=== PATIENT | male | born 1950 | race Caucasian/White ===

== ENCOUNTER 2020-08-12 18:00 | Emergency (ER) | payer MEDICARE, OTHER ==
[~2020-08-12] VITALS: Ht 167 cm; Wt 117.0 kg
--- NOTE | 2020-08-12 18:24 | ED Cardiac General ---
History of Present Illness General Stated Complaint: HIGH BP Source: patient, spouse Exam Limitations: no limitations History of Present Illness Date Seen by Provider: Aug 12, 2020 Time Seen by Provider: 18:08 Initial Comments Patient presents the ER by private conveyance with chief complaint that he was sitting at home not doing anything strenuous and had no symptoms but decided he would just check his blood pressure. He noted it was 205/105 which was significantly elevated for him. He is not having any symptoms chest pain shortness of air weakness or exertional dyspnea but decided he better get it checked out. He has an appointment the following week with a sas architect to help manage his uncontrollable blood pressure. He is on losartan, metoprolol and amlodipine. He says he is been taking his medications routinely although he has not had his evening meds yet which he usually takes at 8:00. No history of coronary disease. He is not a smoker. No significant familial early onset coronary disease. He has diabetes on Levemir and his last A1c was 5 so his primary care provider Walker Goodman at [facility] discontinued his NovoLog. He did recently stop Trulicity and start Januvia. He has had no cough fever chills sick contacts or travel. No nausea vomiting headache diarrhea or constipation. He is accompanied by a book which she logs his blood pressures and for the past month or 2 and typically runs 150-170 systolic over 90 diastolic. Allergies and Home Medications Allergies Coded Allergies: No Known Drug Allergies (Unverified , 08/12/20) Home Medications Azithromycin 250 Mg Tablet, 250 MG PO UD TAKE 2 TABLETS ON DAY ONE THEN TAKE 1 TABLET DAILY FOR FOUR MORE DAYS Prescribed by: PRIETO PISANO on 08/12/201920 Cefdinir 300 Mg Capsule, 300 MG PO BID Prescribed by: PRIETO PISANO on 08/12/201920 Patient Home Medication List Home Medication List Reviewed: Yes Review of Systems Review of Systems Constitutional: No chills, No diaphoresis EENTM: No Blurred Vision, No Double Vision Respiratory: Denies Cough, Denies Shortness of Air Cardiovascular: Denies Chest Pain, Denies Lightheadedness Gastrointestinal: Denies Constipated, Denies Diarrhea, Denies Nausea, Denies Vomiting Genitourinary: Denies Burning, Denies Discharge Musculoskeletal: No back pain, No joint pain Psychiatric/Neurological: Denies Anxiety, Denies Depressed All Other Systems Reviewed Negative Unless Noted: Yes Past Eadwjwi-Tboxvp-Qcicwc Hx Patient Social History Alcohol Use: Denies Use Drug of Choice: Denies Smoking Status: Former Smoker Type Used: Cigarettes Former Smoker, Quit: Jul 23, 1998 Physical Exam Vital Signs Vital Signs - First Documented 08/12/20 18:22 Temp 37.1 Pulse 104 Resp 18 B/P (MAP) 200/100 (133) Pulse Ox 97 Capillary Refill : Height, Weight, BMI Height: '" Weight: lbs. oz. kg; BMI Method: General Appearance: No Apparent Distress, Obese HEENT: PERRL/EOMI, Pharynx Normal, Moist Mucous Membranes Neck: Normal Inspection, Non Tender Respiratory: No Accessory Muscle Use, No Respiratory Distress, Rales (Few crackles in the mid right lung and lower lung base. No wheezing) Cardiovascular: Regular Rate, Rhythm, No Edema, Normal Peripheral Pulses Gastrointestinal: Non Tender, Soft Extremity: Normal Capillary Refill, Normal Inspection Neurologic/Psychiatric: Alert, Oriented x3 Skin: Normal Color, Warm/Dry Progress/Results/Core Measures Results/Orders Lab Results Laboratory Tests Test 08/12/20 18:14 Range/Units White Blood Count 9.7 4.3-11.0 10^3/uL Red Blood Count 4.52 4.30-5.52 10^6/uL Hemoglobin 13.1 L 13.3-17.7 g/dL Hematocrit 38 L 40-54 % Mean Corpuscular Volume 83 80-99 fL Mean Corpuscular Hemoglobin 29 25-34 pg Mean Corpuscular Hemoglobin Concent 35 32-36 g/dL Red Cell Distribution Width 12.9 10.0-14.5 % Platelet Count 265 130-400 10^3/uL Mean Platelet Volume 8.8 L 9.0-12.2 fL Immature Granulocyte % (Auto) 1 % Neutrophils (%) (Auto) 64 42-75 % Lymphocytes (%) (Auto) 19 12-44 % Monocytes (%) (Auto) 8 0-12 % Eosinophils (%) (Auto) 9 0-10 % Basophils (%) (Auto) 1 0-10 % Neutrophils # (Auto) 6.2 1.8-7.8 10^3/uL Lymphocytes # (Auto) 1.8 1.0-4.0 10^3/uL Monocytes # (Auto) 0.8 0.0-1.0 10^3/uL Eosinophils # (Auto) 0.9 H 0.0-0.3 10^3/uL Basophils # (Auto) 0.1 0.0-0.1 10^3/uL Immature Granulocyte # (Auto) 0.1 0.0-0.1 10^3/uL Sodium Level 137 135-145 MMOL/L Potassium Level 3.8 3.6-5.0 MMOL/L Chloride Level 99 98-107 MMOL/L Carbon Dioxide Level 22 21-32 MMOL/L Anion Gap 16 H 5-14 MMOL/L Blood Urea Nitrogen 37 H 7-18 MG/DL Creatinine 1.12 0.60-1.30 MG/DL Estimat Glomerular Filtration Rate > 60 BUN/Creatinine Ratio 33 Glucose Level 72 70-105 MG/DL Calcium Level 9.1 8.5-10.1 MG/DL Corrected Calcium 9.1 8.5-10.1 MG/DL Total Bilirubin 0.8 0.1-1.0 MG/DL Aspartate Amino Transf (AST/SGOT) 31 5-34 U/L Alanine Aminotransferase (ALT/SGPT) 37 0-55 U/L Alkaline Phosphatase 83 40-136 U/L Troponin I < 0.028 <0.028 NG/ML B-Type Natriuretic Peptide 14.8 <100.0 PG/ML Total Protein 8.5 H 6.4-8.2 GM/DL Albumin 4.0 3.2-4.5 GM/DL My Orders Orders - ALIYA,PRIETO J Chest 1 View, Ap/Pa Only (08/12/20 18:15) Ekg Tracing (08/12/20 18:17) Continuous Ekg Monitoring (08/12/20 18:17) Cbc With Automated Diff (08/12/20 18:17) Comprehensive Metabolic Panel (08/12/20 18:17) Troponin I (08/12/20 18:17) BNP (08/12/20 18:17) Aspirin Chewable Tablet (Baby Aspirin Ch (08/12/20 18:30) Medications Given in ED Current Medications Medications Dose Ordered Sig/Lawanda Route Start Time Stop Time Status Last Admin Dose Admin Aspirin 324 mg ONCE ONCE PO 08/12/20 18:30 08/12/20 18:31 DC 08/12/20 18:33 324 MG Vital Signs/I&O 08/12/20 18:22 Temp 37.1 Pulse 104 Resp 18 B/P (MAP) 200/100 (133) Pulse Ox 97 Progress Progress Note #1: Time: 18:21 Progress Note Asymptomatic accelerated hypertension. Our goal would be a 20% decrease today. He had a blood pressure of 200/95 on arrival and at the end of our interview he was already down to 190/94. We will continue to monitor him and we may start a third medication at this junction. Minimal amount of congestion in the vasculature of his lungs so we will get a BNP. EKG and chest x-ray points towards possible pulmonary hypertension. This will need to be explored more by his sas architect. Progress Note #2: Time: 19:18 Progress Note With rest the patient's blood pressure is 164/82 which is a significant drop. His blood pressure is probably worsened by his anxiety. He may have a mild pneumonia Rosalina put him on cefdinir and azithromycin and have him follow-up outpatient. Patient is okay with this plan. He has had no material deterioration during his stay in the ER. Initial ECG Impression Date: Aug 12, 2020 Initial ECG Impression Time: 18:24 Initial ECG Rate: 101 Initial ECG Rhythm: S.Tach Initial ECG Intervals: IL (216 ms) Initial ECG Impression: Normal, Nonspecific Changes Initial ECG Comparisson: No Previous ECG Available Comment No previous EKG but he has sinus tachycardia with no clinically relevant ST changes and some prolonged IL interval. EKG indicates some artifact may be pacemaker spike however he does not have a pacemaker. Right deviation of the mean electrical activity. Diagnostic Imaging Diagonstic Imaging: Xray Plain Films/CT/US/NM/MRI: chest Comments NAME: WALKER CHIRINOS [facility] REC#: [id number] PT STATUS: REG ER : 1950 PHYSICIAN: PRIETO PISANO MD ADMIT DATE: 08/12/20/ER Draft Date of Exam:08/12/20 CHEST 1 VIEW, AP/PA ONLY INDICATION: Hypertension. TECHNIQUE: Single view chest 6:23 PM. CORRELATION STUDY: None. FINDINGS: Heart size is borderline enlarged. Mediastinal configuration and vasculature are within normal limits. Atelectasis or infiltrate suggested about the right infrahilar region. Elevated right diaphragm. IMPRESSION: Questioned infiltrate and/or atelectasis developing in the right lung base medially. Dictated on workstation # [id number] Dict: 08/12/20 1822 Trans: 08/12/20 1831 [facility] [id number] Interpreted by: BROOKLYN DUVALL DO Electronically signed by: Reviewed: Reviewed by Me Departure Impression Primary Impression: Asymptomatic hypertensive urgency Additional Impression: Pneumonia Qualified Codes: J18.9 - Pneumonia, unspecified organism Disposition: HOME, SELF-CARE Condition: Stable Departure-Patient Inst. Decision time for Depature: 19:19 Referrals: NO,LOCAL PHYSICIAN (PCP) Primary Care Physician WALKER GOODMAN (Family) Primary Care Physician Patient Instructions: Pneumonia in Adults, Malignant Hypertension (DC) Add. Discharge Instructions: Your blood pressure came down as you rested. It certainly can be driven by anxiety and may need further management outpatient. Since your blood pressure is at a reasonable goal at this time we will not make any changes to your medicines rather I would have you follow-up with a sas architect and take instructions from them. Cefdinir 1 capsule twice a day for the next week. Azithromycin 2 tablets followed by 1 tablet daily until they are gone. Follow-up in 1 to 2 weeks with your primary care team for reevaluation to see if your symptoms improve after the antibiotics. Return to the ER for chest pain, shortness of air or other worrisome symptoms Scripts Azithromycin (Azithromycin) 250 Mg Tablet 250 MG PO UD, #6 TAB TAKE 2 TABLETS ON DAY ONE THEN TAKE 1 TABLET DAILY FOR FOUR MORE DAYS Prov: PRIETO PISANO 08/12/20 Cefdinir (Cefdinir) 300 Mg Capsule 300 MG PO BID for 7 Days, #14 CAP 0 Refills Prov: PRIETO PISANO 08/12/20 PRIETO PISANO Aug 12, 2020 18:24
[2020-08-12] MEDS ORDERED: ASPIRIN 81 MG CHEW (CHILDREN'S ASA) PO ONE (18:30)
--- NOTE | 2020-08-12 18:33 | Diagnostic Imaging Report ---
INDICATION: Hypertension. TECHNIQUE: Single view chest 6:23 PM. CORRELATION STUDY: None. FINDINGS: Heart size is borderline enlarged. Mediastinal configuration and vasculature are within normal limits. Atelectasis or infiltrate suggested about the right infrahilar region. Elevated right diaphragm. IMPRESSION: Questioned infiltrate and/or atelectasis developing in the right lung base medially. Dictated by: Dictated on workstation # [id number]
[2020-08-12 18:50] LABS: BASOPHILS # (AUTO) 0.1 10^3/uL (0.0-0.1); BASOPHILS % (AUTO) 1 % (0-10); EOSINOPHILS # (AUTO) 0.9 10^3/uL (0.0-0.3); EOSINOPHILS % (AUTO) 9 % (0-10); HEMATOCRIT 38 % (40-54); HEMOGLOBIN 13.1 g/dL (13.3-17.7); LYMPHOCYTES # (AUTO) 1.8 10^3/uL (1.0-4.0); LYMPHOCYTES % (AUTO) 19 % (12-44); MEAN CORPUSCULAR HEMOGLOBIN 29 pg (25-34); MEAN CORPUSCULAR HGB CONC 35 g/dL (32-36); MEAN CORPUSCULAR VOLUME 83 fL (80-99); MEAN PLATELET VOLUME 8.8 fL (9.0-12.2); MONOCYTES # (AUTO) 0.8 10^3/uL (0.0-1.0); MONOCYTES % (AUTO) 8 % (0-12); NEUTROPHILS # (AUTO) 6.2 10^3/uL (1.8-7.8); NEUTROPHILS % (AUTO) 64 % (42-75); PLATELET COUNT 265 10^3/uL (130-400); WHITE BLOOD COUNT 9.7 10^3/uL (4.3-11.0)
[2020-08-12 19:10] LABS: ALANINE AMINOTRANSFERASE 37 U/L (0-55); ALKALINE PHOSPHATASE 83 U/L (40-136); BILIRUBIN,TOTAL 0.8 MG/DL (0.1-1.0); BUN/CREATININE RATIO 33; CALCIUM 9.1 MG/DL (8.5-10.1); CARBON DIOXIDE 22 MMOL/L (21-32); CHLORIDE 99 MMOL/L (98-107); CREATININE SERUM 1.12 MG/DL (0.60-1.30); GFR ESTIMATED > 60; GLUCOSE 72 MG/DL (70-105); POTASSIUM 3.8 MMOL/L (3.6-5.0); SODIUM 137 MMOL/L (135-145); TOTAL PROTEIN 8.5 GM/DL (6.4-8.2)
[2020-08-12] MEDS ORDERED: AZIT250T12 PO (19:21)
[2020-08-12] MEDS ORDERED: CEFD300C3 PO (19:21)
[2020-08-13 01:10] VITALS: BP 163/86
== END 2020-08-12 20:15 | disposition home or self-care (01) ==
LOC: EDUNIT# 18:00 → EDSEX 18:02 → ER 18:02
DX: I16.0 Hypertensive urgency (principal); J18.9 Pneumonia, unspecified organism; I10 Essential (primary) hypertension; Z87.891 Personal history of nicotine dependence; Z79.899 Other long term (current) drug therapy
CPT/HCPCS: 36415; 71045; 80053; 83880; 84484; 85025; 93005

== ENCOUNTER 2020-08-17 18:26 | Emergency (ER) | payer MEDICARE ==
[~2020-08-17] VITALS: Ht 162 cm; Wt 113.0 kg
[~2020-08-17 18:26] MED LIST: AZIT250T12 PO; CEFD300C3 PO
[2020-08-17] MEDS ORDERED: METO100T12 (18:42)
[2020-08-17] MEDS ORDERED: HYDR25TA4 (18:42)
[2020-08-17] MEDS ORDERED: PRAV80TA2 (18:42)
[2020-08-17] MEDS ORDERED: AMLO-251 (18:42)
[2020-08-17] MEDS ORDERED: LOSA100T57 (18:42)
[2020-08-17] MEDS ORDERED: METF-399 (18:42)
[2020-08-17] MEDS ORDERED: cloNIDine 0.2 MG (CATAPRES) TAB PO ONE (19:30)
--- NOTE | 2020-08-17 19:31 | ED General ---
General Chief Complaint: Cardiac/General Problems Stated Complaint: ELEV BP 207/113 Nursing Triage Note: ARRIVED VIA AMB FROM HOME WITH COMPLAINT OF CONTINUING HIGH BP. STATES HE WAS SEEN HERE ON FOR THE SAME THING. PT HAS A NOSE BLEED. Nursing Sepsis Screen: No Definite Risk Source of Information: Patient Exam Limitations: No Limitations History of Present Illness Date Seen by Provider: Aug 17, 2020 Time Seen by Provider: 18:50 Initial Comments Patient is a 69-year-old male who presents to the emergency department today with a chief complaint of elevated blood pressure with right-sided bloody nose. Patient states that he had been talking to his and noticed that his nose was starting to run and when he went to check it he noticed that he had a bloody nose. He subsequently took his blood pressure and noted that it was greater than 200 systolic. Patient states that he was seen here about a week ago as dusty castañeda for elevated blood pressure in the setting of runny nose and a "small pneumonia". Patient had no changes to his blood pressure medicine regimen. He was placed on antibiotics for this pneumonia. He was advised to follow-up with his code number stamper and primary care physician regarding further management of his blood pressure. Patient states that he took his metoprolol early this evening when he realized that his blood pressure was high and came to the emergency department about an hour later. Patient is quite concerned about having a heart attack or a stroke. He currently has no symptoms of headache, vision changes, chest pain, shortness of breath. No nausea or vomiting. He states that his bloody nose stopped on its own. He states it always bleeds out of the right side of his nose. Patient states that he has an appointment with his code number stamper on the or 17 September. He also will follow up with his primary care physician on Thursday. His is at the bedside and also provides further history. No other recent illnesses are reported. All other review of systems reviewed and negative except as stated above. Timing/Duration: 1-3 Hours Severity: Mild Associated Systoms: Denies Symptoms Allergies and Home Medications Allergies Coded Allergies: No Known Drug Allergies (Unverified , 08/12/20) Home Medications Azithromycin 250 Mg Tablet, 250 MG PO UD TAKE 2 TABLETS ON DAY ONE THEN TAKE 1 TABLET DAILY FOR FOUR MORE DAYS Prescribed by: PRIETO PISANO on 08/12/201920 Cefdinir 300 Mg Capsule, 300 MG PO BID Prescribed by: PRIETO PISANO on 08/12/201920 Patient Home Medication List Home Medication List Reviewed: Yes Review of Systems Review of Systems Constitutional: no symptoms reported EENTM: epistaxis (right sided) Respiratory: no symptoms reported Cardiovascular: no symptoms reported Gastrointestinal: no symptoms reported Genitourinary: no symptoms reported Musculoskeletal: no symptoms reported Skin: no symptoms reported All Other Systems Reviewed Negative Unless Noted: Yes Past Hbztvoh-Hcivfl-Xtryjm Hx Patient Social History Alcohol Use: Denies Use Drug of Choice: Denies Smoking Status: Former Smoker Type Used: Cigarettes Former Smoker, Quit: Jul 23, 1998 Recent Infectious Disease Expo: No Past Medical History Appendectomy Respiratory: Yes COPD Cardiac: Yes Coronary Artery Disease, High Cholesterol, Hypertension Neurological: No Genitourinary: No Gastrointestinal: No Musculoskeletal: No Endocrine: Yes Diabetes, Insulin dep HEENT: No Cancer: No Psychosocial: No Physical Exam Vital Signs Vital Signs - First Documented 08/17/20 18:35 Temp 36.1 Pulse 96 Resp 18 B/P (MAP) 206/108 (140) Pulse Ox 96 O2 Delivery Room Air Capillary Refill : Less Than 3 Seconds Height, Weight, BMI Height: '" Weight: lbs. oz. kg; 43.00 BMI Method: General Appearance: No Apparent Distress Eyes: Bilateral Eye Normal Inspection, Bilateral Eye PERRL, Bilateral Eye EOMI HEENT: PERRL/EOMI, Other (Patient has clotted nasal blood in the right nare with no evidence of active bleeding) Neck: Full Range of Motion, Supple Respiratory: Lungs Clear, Normal Breath Sounds, No Accessory Muscle Use, No Respiratory Distress Cardiovascular: Regular Rate, Rhythm, Normal Peripheral Pulses (2_ radial pulses bilaterally) Gastrointestinal: Normal Bowel Sounds, Non Tender, Soft Extremity: Normal Capillary Refill, Normal Range of Motion Neurologic/Psychiatric: Alert, Oriented x3, No Motor/Sensory Deficits, Normal Mood/Affect, windows architect II-XII Norm as Tested Skin: Normal Color, Warm/Dry Progress/Results/Core Measures Suspected Sepsis Recent Fever Within 48 Hours: No Infection Criteria Present: None New/Unexplained Altered Menta: No Sepsis Screen: No Definite Risk SIRS Temperature: Pulse: 96 Respiratory Rate: 18 Blood Pressure 206 /108 Mean: 140 Results/Orders My Orders Orders - MAYE MEYER MD Clonidine Tablet (Catapres Tablet) (08/17/20 19:30) Medications Given in ED Current Medications Medications Dose Ordered Sig/Lawanda Route Start Time Stop Time Status Last Admin Dose Admin Clonidine HCl 0.2 mg ONCE ONCE PO 08/17/20 19:30 08/17/20 19:31 DC 08/17/20 19:34 0.2 MG Vital Signs/I&O 08/17/20 18:35 Temp 36.1 Pulse 96 Resp 18 B/P (MAP) 206/108 (140) Pulse Ox 96 O2 Delivery Room Air Capillary Refill : Less Than 3 Seconds Blood Pressure Mean: 140 Progress Note : Time: : Progress Note Patient seen and evaluated evaluation today includes a physical exam. Patient has clotted nasal blood in his right nare. His blood pressure remains high in the 190/99 range. He is not having any signs or symptoms of endorgan damage at this point. Of note he had laboratory evaluation a week ago. Renal function was reviewed and was within normal limits. Patient is on 150 mg of metoprolol twice daily. He is also on losartan and a third blood pressure pill, amlodipine. He also has hydrochlorothiazide of which he is taking 1-1/2 tablets a day. Patient states that he has follow-up scheduled with his primary and his is going to call them on Thursday. He also has cardiology follow-up in a month. At this point I am not concerned about hypertensive emergency. He is awake alert oriented with no focal neurologic deficits, no complaints of chest pain or shortness of breath. No renal complaints. Patient is treated here in the emergency department with 0.2 mg of clonidine. We will evaluate his metoprolol and see if it is the extended release tablets and may adjust these. Patient is comfortable with this plan of care. All questions are sought and answered. Patient is stable for discharge. Departure Impression Primary Impression: High blood pressure Qualified Codes: I10 - Essential (primary) hypertension Additional Impression: Epistaxis Disposition: HOME, SELF-CARE Condition: Stable Departure-Patient Inst. Referrals: NO,LOCAL PHYSICIAN (PCP) Primary Care Physician RIAN GOODMAN (Family) Primary Care Physician Patient Instructions: High Blood Pressure (DC), Nosebleeds (DC) Add. Discharge Instructions: I recommend either starting on an EXTENDED RELEASE Metoprolol once daily or INCREASING your current Metoprolol dose to 200mg twice a day. Continue your other medications as previsouly prescribed. Please follow up tomorrow with your primary care clinic for further management of your blood pressure medicines. Please come back to the emergency department if you have elevated blood pressure in the setting of chest pain, shortness of breath, severe headache, persistent bloody nose or any other emergent concerning symptoms Please keep your follow-up appointment with your code number stamper. Call to see if you can get a sooner appointment. Copy Copies To 1: [facility] [place] Copies To 2: STEPHANIE AREVALO KATHRYN M MD Aug 17, 2020 19:30
[2020-08-17] MEDS ORDERED: MTP100TCR PO (19:41)
[2020-08-17 20:25] VITALS: BP 171/92
== END 2020-08-17 20:18 | disposition home or self-care (01) ==
LOC: EDUNIT# 18:26 → ER 18:28
DX: I10 Essential (primary) hypertension (principal); R04.0 Epistaxis; Z87.891 Personal history of nicotine dependence

== ENCOUNTER → 2020-09-20 | Outpatient (CLI) | payer MEDICARE ==
[~2020-09-20] MED LIST changes: +AMLO-251; +HYDR25TA4; +LOSA100T57; +METF-399; +METO100T12; +MTP100TCR PO; +PRAV80TA2
== END ==
LOC: CARD 10:50
PROVIDERS: ATTEND Internal Medicine Cardiovascular Disease
DX: I37.1 Nonrheumatic pulmonary valve insufficiency (principal)
CPT/HCPCS: 93306

== ENCOUNTER → 2020-09-21 | Outpatient (CLI) | payer MEDICARE ==
[~2020-09-21] VITALS: Ht 167 cm; Wt 104.0 kg
[~2020-09-21] MED LIST changes: +REGADENOSON 0.4 MG/5 ML SYR (LEXISCAN) IV ONE
[2020-09-21] MEDS: CATHETER FLUSH 10 ML SYR IV PRN ×2 (07:46→08:54)
[2020-09-21 08:40] VITALS: BP 178/88
[2020-09-21 09:39] LABS: BASOPHILS % (AUTO) 0 % (0-10); EOSINOPHILS # (AUTO) 0.9 10^3/uL (0.0-0.3); EOSINOPHILS % (AUTO) 11 % (0-10); HEMATOCRIT 34 % (40-54); HEMOGLOBIN 11.6 g/dL (13.3-17.7); LYMPHOCYTES # (AUTO) 0.8 10^3/uL (1.0-4.0); LYMPHOCYTES % (AUTO) 11 % (12-44); MEAN CORPUSCULAR HEMOGLOBIN 30 pg (25-34); MEAN CORPUSCULAR HGB CONC 34 g/dL (32-36); MEAN CORPUSCULAR VOLUME 87 fL (80-99); MEAN PLATELET VOLUME 8.8 fL (9.0-12.2); MONOCYTES # (AUTO) 0.6 10^3/uL (0.0-1.0); MONOCYTES % (AUTO) 7 % (0-12); NEUTROPHILS # (AUTO) 5.5 10^3/uL (1.8-7.8); NEUTROPHILS % (AUTO) 70 % (42-75); PLATELET COUNT 186 10^3/uL (130-400); WHITE BLOOD COUNT 7.8 10^3/uL (4.3-11.0)
[2020-09-21 09:59] LABS: ALBUMIN 3.7 GM/DL (3.2-4.5); BILIRUBIN,TOTAL 0.7 MG/DL (0.1-1.0); CREATININE SERUM 1.27 MG/DL (0.60-1.30); POTASSIUM 4.2 MMOL/L (3.6-5.0); TOTAL PROTEIN 7.8 GM/DL (6.4-8.2)
[2020-09-21 10:14] LABS: ERYTHROCYTE SEDIMENTATION RATE 70 MM/HR (0-30)
--- NOTE | 2020-09-24 14:35 | STRESS TEST ---
DATE OF SERVICE: 09/21/2020 RESTING AND POST REGADENOSON TECHNETIUM-99M TETROFOSMIN SPECT CT IMAGING ORDERING PHYSICIAN: Dr. Trinidad. PRIMARY PHYSICIAN: LAWRENCE Gary. CLINICAL DIAGNOSIS: Shortness of breath. Baseline images were carried out after injection of 10.24 mCi technetium-99m Tetrofosmin. This was then followed by 0.4 mg regadenoson and 31 mCi of technetium-99m Tetrofosmin for stress imaging. The electrocardiogram shows sinus rhythm at baseline. It did not change significantly with the regadenoson infusion. The patient tolerated the procedure well. Review of images at rest and following stress does not indicate any distinct perfusion defects consistent with significant myocardial ischemia or infarction. Gated images show normal global left ventricular systolic function with normal regional wall motion. Left ventricular ejection fraction is calculated to be 66%. CONCLUSIONS No significant myocardial ischemia or infarction seen on this study Normal regional wall motion LVEF 66% Job ID: [id number] DocumentID: [id number] Dictated Date: 09/24/2020 10:12:31 Senior Account Manager Date: 09/24/2020 14:34:45 Dictated By: CARLOS TRINIDAD MD, MA, FACP, FACC, MTDD
== END ==
LOC: CARD 07:14
PROVIDERS: ATTEND Internal Medicine Cardiovascular Disease
DX: R06.09 Other forms of dyspnea (principal)
CPT/HCPCS: 78452; 80053; 80061; 84443; 85025; 85652; 93017; A9502; 36415

== ENCOUNTER 2020-12-17 15:10 | Emergency (ER) | payer MEDICARE ==
[~2020-12-17] VITALS: Ht 165 cm; Wt 113.6 kg
[~2020-12-17 15:10] MED LIST changes: -REGADENOSON 0.4 MG/5 ML SYR (LEXISCAN) IV ONE
[2020-12-17 15:35] LABS: BASOPHILS % (AUTO) 0 % (0-10); EOSINOPHILS # (AUTO) 1.1 10^3/uL (0.0-0.3); EOSINOPHILS % (AUTO) 12 % (0-10); HEMATOCRIT 32 % (40-54); HEMOGLOBIN 10.8 g/dL (13.3-17.7); LYMPHOCYTES # (AUTO) 0.7 X 10^3 (1.0-4.0); LYMPHOCYTES % (AUTO) 8 % (12-44); MEAN CORPUSCULAR HEMOGLOBIN 30 pg (25-34); MEAN CORPUSCULAR HGB CONC 34 g/dL (32-36); MEAN CORPUSCULAR VOLUME 87 fL (80-99); MEAN PLATELET VOLUME 9.1 fL (9.0-12.2); MONOCYTES # (AUTO) 0.5 X 10^3 (0.0-1.0); MONOCYTES % (AUTO) 6 % (0-12); NEUTROPHILS # (AUTO) 6.3 X 10^3 (1.8-7.8); NEUTROPHILS % (AUTO) 73 % (42-75); PLATELET COUNT 163 10^3/uL (130-400); WHITE BLOOD COUNT 8.6 10^3/uL (4.3-11.0)
--- NOTE | 2020-12-17 15:38 | ED General ---
General Chief Complaint: Glucose Problems Stated Complaint: HYPOGLYCEMIA Source of Information: Patient Exam Limitations: No Limitations History of Present Illness Date Seen by Provider: Dec 17, 2020 Time Seen by Provider: 15:35 Initial Comments To ER with reports of hypoglycemia. Patient reports that he felt sweaty. EMS arrived and found his blood sugar to be in the 30s. They gave an amp of D50. Patient states that his hemoglobin A1c has been in the 5 range. He is on insulin. Timing/Duration: 1-2 Days Severity: Moderate Associated Systoms: Denies Symptoms Allergies and Home Medications Allergies Coded Allergies: No Known Drug Allergies (Unverified , 08/12/20) Home Medications Azithromycin 250 Mg Tablet, 250 MG PO UD TAKE 2 TABLETS ON DAY ONE THEN TAKE 1 TABLET DAILY FOR FOUR MORE DAYS Prescribed by: PRIETO PISANO on 08/12/201920 Cefdinir 300 Mg Capsule, 300 MG PO BID Prescribed by: PRIETO PISANO on 08/12/201920 Patient Home Medication List Home Medication List Reviewed: Yes Review of Systems Review of Systems Constitutional: see HPI EENTM: see HPI Respiratory: no symptoms reported Cardiovascular: no symptoms reported Genitourinary: no symptoms reported Musculoskeletal: no symptoms reported Skin: no symptoms reported Psychiatric/Neurological: No Symptoms Reported Past [id number] Hx Past Medical History Appendectomy Respiratory: Yes COPD Cardiac: Yes Coronary Artery Disease, High Cholesterol, Hypertension Neurological: No Genitourinary: No Gastrointestinal: No Musculoskeletal: No Endocrine: Yes Diabetes, Insulin dep HEENT: No Cancer: No Psychosocial: No Physical Exam Vital Signs Vital Signs - First Documented 12/17/20 15:10 Temp 36.0 Pulse 72 Resp 18 Pulse Ox 92 O2 Delivery Room Air Capillary Refill : Height, Weight, BMI Height: '" Weight: lbs. oz. kg; 37.29 BMI Method: General Appearance: No Apparent Distress, WD/WN, Chronically ill, Obese Eyes: Bilateral Eye Normal Inspection, Bilateral Eye PERRL, Bilateral Eye EOMI HEENT: PERRL/EOMI, TMs Normal Neck: Full Range of Motion, Normal Inspection Respiratory: No Accessory Muscle Use, No Respiratory Distress Cardiovascular: Regular Rate, Rhythm, Normal Peripheral Pulses Gastrointestinal: Normal Bowel Sounds, Non Tender, Soft Extremity: Normal Capillary Refill, Normal Inspection Neurologic/Psychiatric: Alert, Oriented x3 Skin: Normal Color, Warm/Dry Progress/Results/Core Measures Suspected Sepsis SIRS Temperature: Pulse: Respiratory Rate: Laboratory Tests 12/17/20 15:23: White Blood Count 8.6 Blood Pressure / Mean: Laboratory Tests 12/17/20 15:23: Creatinine 0.79, Platelet Count 163, Total Bilirubin 0.6 Results/Orders Lab Results Laboratory Tests Test 12/17/20 15:16 12/17/20 15:23 12/17/20 16:26 Range/Units Glucometer 100 64 L 70-110 MG/DL White Blood Count 8.6 4.3-11.0 10^3/uL Red Blood Count 3.64 L 4.30-5.52 10^6/uL Hemoglobin 10.8 L 13.3-17.7 g/dL Hematocrit 32 L 40-54 % Mean Corpuscular Volume 87 80-99 fL Mean Corpuscular Hemoglobin 30 25-34 pg Mean Corpuscular Hemoglobin Concent 34 32-36 g/dL Red Cell Distribution Width 13.1 10.0-14.5 % Platelet Count 163 130-400 10^3/uL Mean Platelet Volume 9.1 9.0-12.2 fL Immature Granulocyte % (Auto) 0 % Neutrophils (%) (Auto) 73 42-75 % Lymphocytes (%) (Auto) 8 L 12-44 % Monocytes (%) (Auto) 6 0-12 % Eosinophils (%) (Auto) 12 H 0-10 % Basophils (%) (Auto) 0 0-10 % Neutrophils # (Auto) 6.3 1.8-7.8 X 10^3 Lymphocytes # (Auto) 0.7 L 1.0-4.0 X 10^3 Monocytes # (Auto) 0.5 0.0-1.0 X 10^3 Eosinophils # (Auto) 1.1 H 0.0-0.3 10^3/uL Basophils # (Auto) 0.0 0.0-0.1 10^3/uL Immature Granulocyte # (Auto) 0.0 0.0-0.1 10^3/uL Neutrophils % (Manual) 76 % Lymphocytes % (Manual) 8 % Monocytes % (Manual) 7 % Eosinophils % (Manual) 9 % Blood Morphology Comment NORMAL Sodium Level 143 135-145 MMOL/L Potassium Level 3.4 L 3.6-5.0 MMOL/L Chloride Level 107 98-107 MMOL/L Carbon Dioxide Level 24 21-32 MMOL/L Anion Gap 12 5-14 MMOL/L Blood Urea Nitrogen 27 H 7-18 MG/DL Creatinine 0.79 0.60-1.30 MG/DL Estimat Glomerular Filtration Rate 97 BUN/Creatinine Ratio 34 Glucose Level 91 70-105 MG/DL Calcium Level 8.9 8.5-10.1 MG/DL Corrected Calcium 9.2 8.5-10.1 MG/DL Total Bilirubin 0.6 0.1-1.0 MG/DL Aspartate Amino Transf (AST/SGOT) 28 5-34 U/L Alanine Aminotransferase (ALT/SGPT) 28 0-55 U/L Alkaline Phosphatase 76 40-136 U/L Total Protein 7.5 6.4-8.2 GM/DL Albumin 3.6 3.2-4.5 GM/DL My Orders Orders - KITTY ALVARADO APRN Cbc With Automated Diff (12/17/20 15:12) Comprehensive Metabolic Panel (12/17/20 15:12) Cho 60g/M 3snack (16-2000 Jay[place]ob) (12/17/20 Lunch) Manual Differential (12/17/20 15:23) Accucheck Stat ONCE (12/17/20 16:02) Vital Signs/I&O 12/17/20 15:10 Temp 36.0 Pulse 72 Resp 18 B/P (MAP) Pulse Ox 92 O2 Delivery Room Air Capillary Refill : Departure Impression Primary Impression: Hypoglycemia associated with diabetes Disposition: 01 HOME, SELF-CARE Condition: Stable Departure-Patient Inst. Decision time for Depature: 16:05 Referrals: NO,LOCAL PHYSICIAN (PCP) Primary Care Physician RIAN GOODMAN (Family) Primary Care Physician Patient Instructions: HYPOGLYCEMIA Add. Discharge Instructions: All discharge instructions reviewed with patient and/or family. Voiced understanding. KITTY ALVARADO APRN Dec 17, 2020 15:37
[2020-12-17 15:49] LABS: ALBUMIN 3.6 GM/DL (3.2-4.5); POTASSIUM 3.4 MMOL/L (3.6-5.0)
[2020-12-17 15:50] LABS: CALCIUM 8.9 MG/DL (8.5-10.1)
[2020-12-17 15:51] LABS: TOTAL PROTEIN 7.5 GM/DL (6.4-8.2)
[2020-12-17 15:53] LABS: BILIRUBIN,TOTAL 0.6 MG/DL (0.1-1.0)
[2020-12-17 15:55] LABS: CREATININE SERUM 0.79 MG/DL (0.60-1.30); EOSINOPHILS % (MANUAL) 9 %; LYMPHOCYTES % (MANUAL) 8 %; MONOCYTES % (MANUAL) 7 %; NEUTROPHILS % (MANUAL) 76 %; RBC MORPH NORMAL
[2020-12-17 17:30] VITALS: BP 158/72
== END 2020-12-17 17:30 | disposition home or self-care (01) ==
LOC: EDUNIT# 15:10 → ER 15:10
DX: E11.649 Type 2 diabetes mellitus with hypoglycemia without coma (principal); I10 Essential (primary) hypertension; J44.9 Chronic obstructive pulmonary disease, unspecified; Z79.4 Long term (current) use of insulin
CPT/HCPCS: 36415; 80053; 82947; 85007; 85027